=== PATIENT | male | born 1965 | race Caucasian/White ===

== ENCOUNTER → 2017-06-17 | Outpatient (CLI) | payer BC ==
[~2017-06-17] VITALS: Ht 180.3 cm; Wt 88.9 kg
[2017-06-17] VITALS (8 sets, daily range): BP systolic 95–130; BP diastolic 64–84
[~2017-06-17] MED LIST: FLEXERIL PO; NOHOMEMEDICATIONS; ULTRAM 50MG TAB50 MG PO
[2017-06-17 09:54] LABS: HEMATOCRIT 49.6 % (42.0-52.0); HEMOGLOBIN 16.9 gm/dL (14.0-18.0); MCH 29.6 pg (26.0-34.0); MCHC 34.2 g/dL (28.0-37.0); MCV 86.6 fL (80.0-100.0); MPV 8.4 fl. (7.2-11.1); RBC 5.73 mil/uL (4.50-6.00); RDW-CV 13.7 % (10.5-14.5); WBC 5.4 thou/uL (4.0-11.0)
[2017-06-17 10:03] LABS: APTT 27.2 Seconds (25.0-31.3); PROTIME 9.8 Seconds (9.20-11.50)
== END | disposition home or self-care (01) ==
LOC: M.INT 08:52
PROVIDERS: Radiology Diagnostic Radiology
DX: T81.4XXA Infection following a procedure, initial encounter (principal); L02.214 Cutaneous abscess of groin; Z98.890 Other specified postprocedural states; Z88.8 Allergy status to other drugs, medicaments and biological substances; Y83.8 Other surgical procedures as the cause of abnormal reaction of the patient, or of later complication, without mention of misadventure at the time of the procedure; Z79.01 Long term (current) use of anticoagulants